=== PATIENT | female | born 1960 | race American Indian/Alaskan Native ===

== ENCOUNTER → 2018-01-12 16:47 | Outpatient (CLI) | payer OTHER ==
[2015-09-28 10:12] VITALS: BMI 35.5
== END | disposition home or self-care (01) ==
LOC: D.MAMMO 14:00
DX: Z12.31 Encounter for screening mammogram for malignant neoplasm of breast (principal)

== ENCOUNTER 2019-02-07 08:00 | Day surgery (SDC) | payer OTHER ==
[2019-02-06 15:13] LABS: BASOPHILS 0.5 % (0-2); EOSINOPHILS 2.9 % (0-7); HEMATOCRIT 41.8 % (36.0-48.0); HEMOGLOBIN 13.6 g/dL (12-16); IMMATURE GRANULOCYTES 0.1 % (0-5); LYMPHOCYTES 32.9 % (15-50); MCH 29.6 pg (26.0-34.0); MCHC 32.5 g/dL (31.0-37.0); MCV 90.9 fL (80.0-100.0); MONOCYTES 6.4 % (2-11); NEUTROPHILS 57.2 % (40-80); PLATELET COUNT 290 10x3/uL (130-400); RDW 13.9 % (11.5-14.5); WBC 7.6 10x3/uL (4.8-10.8)
[2019-02-06 15:35] LABS: CALC OSMOLALITY 281 mosm/kg (275-300); CALCIUM 8.7 mg/dL (8.5-10.1); CARBON DIOXIDE 32.3 mmol/L (21.0-32.0); CHLORIDE - SERUM 104 mmol/L (98-107); CREATININE - SERUM 0.8 mg/dL (0.6-1.3); GLUCOSE 116 mg/dL (74-106); POTASSIUM - SERUM 3.3 mmol/L (3.5-5.1); SODIUM 141 mmol/L (136-145); UREA NITROGEN 13 mg/dL (7-18); eGFR NON AFRICAN AMERICAN 77 mL/min (90-120)
[~2019-02-07] VITALS: Ht 160 cm; Wt 105.2 kg
[2019-02-07 09:09] VITALS: BP 146/67; Ht 160 cm; Wt 105.2 kg
--- NOTE | 2019-02-07 12:54 | NUR ---
PATEINT HAS SCABBED RIGHT KNEE ABOVE WHERE SCD'S WERE PLACED. STATED SHE HAD A PREVIOUS FALL.
[2019-02-07] MEDS ORDERED: HYDROCODON-ACE1 EA10 PO (13:36)
[2019-02-07] MEDS ORDERED: CYCLOBENZAPRINE10 MG PO (13:37)
--- NOTE | 2019-02-07 13:55 | NUR ---
RT AT BEDSIDE FOR FOLLOWUP 12 LEAD EKG
--- NOTE | 2019-02-07 17:29 | NUR ---
1440-REC'D FROM RR. AWAKE AND ALERT. VSS. 02 2L VIA N/C. BANDAIDS X 4 TO ABD CDI. PAIN TOLERABLE 2/10 PT VERBALIZED. CL IN EASY REACH.
--- NOTE | 2019-02-07 17:30 | NUR ---
1630-DISCHARGE CRITERIA MET. VSS. PAIN VERBALIZED TOLERABLE 08/10. AMBULATED TO RESTROOM AND URINATED WITHOUT COMPLICATIONS. BANDAIDS X 4 TO ABD CDI. REMOVED IV FROM LEFT ARM WITH CATH INTACT, DISPOSED INTO SHARPS. COVERED SITE WITH BANDAID. REVIEWED POST OPERATIVE INSTRUCTIONS WITH PT. VERBALIZED UNDERSTANDING. ESCORTED OUT VIA W/C WITH SPOUSE AWAITING TO DRIVE HOME.
--- NOTE | 2019-02-12 14:22 | OP ---
PATIENT NAME: CLAUDIA YA MEDICAL RECORD: [id number] :58 LOCATION:D.OPS ADMISSION DATE: SURGEON: RD CORTEZ MD DATE OF OPERATION: 02/07/2019 PREOPERATIVE DIAGNOSES: Ventral abdominal hernia. POSTOPERATIVE DIAGNOSIS: Ventral abdominal hernia. PROCEDURE: Ventral hernia repair with 11.[address] mesh. SURGEON: Rd Cortez MD REPORT OF PROCEDURE: The patient's abdomen was prepped and draped in sterile fashion. A Veress needle was inserted in the left upper quadrant and the abdomen was insufflated. A 5-mm Visiport trocar was then inserted in the left lateral abdomen. We could see the Veress needle and there was very close to the descending colon, but there was no evidence of any injury to the colon. We removed the Veress needle then inserted a 5-mm trocar in the left upper quadrant and another in the left lower quadrant. The patient had a hernia defect in the midline just a few centimeters above the umbilicus. This contained fatty tissue with no sign of any bowel present within it. This fatty tissue was teased down with blunt dissection and electrocautery. The fatty tissue was the omentum. As we freed this up, we were able to see the hernia defect clearly and there are actually 3 defects present in the abdominal wall. They were all intermittently closed together. The total width of the defects was 6 cm and the height of it was 4 cm and 11.4 cm round Ventralight mesh was inserted through 11-mm trocar, which was replaced and 5-mm trocar site in the left upper quadrant. Once we did this, we were able to grasp the balloon on the mesh and pull this through the central aspect of the hernia defect and the balloon was air up, so we could pull the mesh towards the anterior abdominal wall. With that pulled into place, a SorbaFix Tacker device was used to adhere the mesh to the anterior abdominal wall. In order to facilitate a 360-degree attachment 5-mm trocars were placed times 2 in the right lateral abdomen. Once the mesh was in good position and the balloon was removed, the mesh was inspected and there was no sign of any bleeding and appeared to be good position on the anterior abdominal wall. The 11-mm trocar site fascia was closed with an 0 Vicryl using a Tae-Issa suture passer device. The ports and insufflation were then removed. The skin incisions were infused with a total of 10 mL of 0.25% Marcaine with epinephrine and then closed with subcutaneous 5-0 Monocryl. COMPLICATIONS: None. CONDITION: Stable. ANESTHESIA: General endotracheal and local. BLOOD LOSS: Minimal. TRANSINT:[id number] Voice Confirmation ID: [id number] DOCUMENT ID: [id number] OPERATIVE REPORT [id number] CLAUDIA YA CHRISTIAN MD at 1422 CC: RAFA WOLFE [id number] DICTATION DATE: 02/07/19 1344 ENGINEER SECOND ASSISTANT: 02/07/193 [facility] 02/07/19 [facility] [address] [place] [address]
== END 2019-02-07 16:30 | disposition home or self-care (01) ==
LOC: D.OPS 08:00 → D.PAN 10:15 → D.OPS 10:45 → D.PAN 10:45 → D.OPS 16:30
PROVIDERS: ATTEND Surgery
DX: K43.9 Ventral hernia without obstruction or gangrene (principal)

== ENCOUNTER → 2019-03-12 21:00 | Outpatient (CLI) | payer OTHER ==
[2019-02-07 09:09] VITALS: BMI 41.1
[~2019-03-12 21:00] MED LIST: CYCLOBENZAPRINE10 MG PO; HYDROCODON-ACE1 EA10 PO
== END | disposition home or self-care (01) ==
LOC: D.MAMMO 15:00
PROVIDERS: ATTEND Family Medicine
DX: Z12.31 Encounter for screening mammogram for malignant neoplasm of breast (principal)

== ENCOUNTER 2019-04-10 08:00 | Outpatient (CLI) | payer OTHER ==
[2019-02-07 09:09] VITALS: BMI 41.1
== END 2019-04-10 23:59 | disposition home or self-care (01) ==
LOC: D.MAMMO 08:00
PROVIDERS: ATTEND Clinical Nurse Specialist Family Health
DX: R92.8 Other abnormal and inconclusive findings on diagnostic imaging of breast (principal)

== ENCOUNTER → 2019-10-28 09:30 | Outpatient (CLI) | payer OTHER ==
[2019-02-07 09:09] VITALS: BMI 41.1
== END | disposition home or self-care (01) ==
LOC: D.MAMMO 10-11 09:30
PROVIDERS: ATTEND Clinical Nurse Specialist Family Health
DX: R92.8 Other abnormal and inconclusive findings on diagnostic imaging of breast (principal)